=== PATIENT | male | born 1995 | race Caucasian/White ===

== ENCOUNTER 2017-12-18 20:42 | Emergency (ER) | payer BC ==
--- OUTSIDE RECORDS SUMMARY | 2017-12-18 21:18 | XMS REPORT ---
:1995 External Reference #:[id number] Author Organization [facility] Address [address] [place] [address] Phone [phone] Care Team Providers Name Role Phone HCP/LW on file Primary Care Physician Unavailable Payers Type Date Identification Numbers Payment Provider Subscriber Commercial Effective: Policy Number: VYW Bernard Blanco 2017 [id number] Ind/Ppo/Hmo/Pos PayID: [id number] [address] [address] [place] [address] Problems Description No Information Social History Type Date Description Comments Education Highest Level Completed College Marital Status Single Work Status Currently Working Currently Active Patient is currently sexually active Contraceptive Methods Current methods include condoms 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 Sexual Hx text 1-5 partners in lifetime Allergies, Adverse Reactions, Alerts Date Description Reaction Status Severity Comments 04/04/2016 Neosporin active Medications Medication Date Status Form Strength Qnty SIG Indications Ordering Provider Multivitamin 04/03/2 Active Tablets 1 by Unknown Adult 016 mouth every day Vitamin D Active 2 po Unknown 016 daily Magnesium Active one po Unknown 016 daily Fish Oil Active 2 caps Unknown 016 po daily Calcium Active 2 tbs po Unknown 016 daily Prednisone Hx Tablets 20mg 10tabs 2 tab by L23.7 Hektor, 017 - mouth LOKI Ervin daily x5 017 days Immunizations CPT Code Status Date Vaccine Lot # [id number] Given 10/30/2017 Adacel or Boostrix, TDaP [id number] Given 10/30/2017 Influenza Virus Vaccine, Quadrivalent, Split, [id number] Preservative Free [id number] Given 04/04/2016 Hep A, Adult [id number] Vital Signs Date Vital Result Comment 10/30/2017 BP Systolic 105 mmHg BP Diastolic 70 mmHg Height 69.5 inches 5'9.50" Weight 204.00 lb BMI (Body Mass Index) 29.7 kg/m2 05/31/2017 BP Systolic 110 mmHg BP Diastolic 80 mmHg Height 69.75 inches 5'9.75" Weight 201.00 lb BMI (Body Mass Index) 29.0 kg/m2 04/04/2016 BP Systolic 115 mmHg BP Diastolic 64 mmHg Height 69.5 inches 5'9.50" Weight 198.00 lb BMI (Body Mass Index) 28.8 kg/m2 Results Test Date Test Result H/L Range Note CBC Auto Diff 10/30/2017 White Blood Count 9.2 10^3/uL 3.5-10.8 1 Red Blood Count 5.19 10^6/uL 4.0-5.4 1 Hemoglobin 15.4 g/dL 14.0-18.0 1 Hematocrit 45 % 42-52 1 Mean Corpuscular Volume 87 fL 80-94 1 Mean Corpuscular Hemoglobin 30 pg 27-31 1 Mean Corpuscular HGB Conc 34 g/dL 31-36 1 Red Cell Distribution Width 13 % 10.5-15 1 Platelet Count 158 10^3/uL 150-450 1 Mean Platelet Volume 10 um3 7.4-10.4 1 Abs Neutrophils 6.9 10^3/uL 1.5-7.7 1 Abs Lymphocytes 1.3 10^3/uL 1.0-4.8 1 Abs Monocytes 0.9 10^3/uL High 0-0.8 1 Abs Eosinophils 0.1 10^3/uL 0-0.6 1 Abs Basophils 0 10^3/uL 0-0.2 1 Abs Nucleated RBC 0.01 10^3/uL 1 Granulocyte % 74.8 % 38-83 1 Lymphocyte % 14.3 % Low 25-47 1 Monocyte % 9.6 % High 1-9 1 Eosinophil % 0.9 % 0-6 1 Basophil % 0.4 % 0-2 1 Nucleated Red Blood Cells % 0.1 1 Comp Metabolic Panel 10/30/2017 Sodium 136 mmol/L 133-145 1 Potassium 4.6 mmol/L 3.5-5.0 1 Chloride 100 mmol/L Low 101-111 1 Co2 Carbon Dioxide 32 mmol/L 22-32 1 Anion Gap 4 mmol/L 2-11 1 Glucose 97 mg/dL 70-100 1 Blood Urea Nitrogen 16 mg/dL 6-24 1 Creatinine 1.08 mg/dL 0.67-1.17 1 BUN/Creatinine Ratio 14.8 8-20 1 Calcium 10.0 mg/dL 8.6-10.3 1 Total Protein 7.3 g/dL 6.4-8.9 1 Albumin 4.7 g/dL 3.2-5.2 1 Globulin 2.6 g/dL 2-4 1 Albumin/Globulin Ratio 1.8 1-3 1 Total Bilirubin 0.60 mg/dL 0.2-1.0 1 Alkaline Phosphatase 69 U/L 34-104 1 Alt 17 U/L 7-52 1 Ast 18 U/L 13-39 1 Egfr Non- 85.5 >60 1 Egfr 110.0 >60 1, 2 Lipid Profile (Trig/Chol/HDL) 10/30/2017 Triglycerides 172 mg/dL 1, 3 Cholesterol 216 mg/dL 1, 4 HDL Cholesterol 43.1 mg/dL 1, 5 LDL Cholesterol 139 mg/dL 1, 6 Laboratory test finding 10/30/2017 TSH (Thyroid Stim 1.69 mcIU/mL 0.34- 5.60 1, 7 Horm) Vitamin D Total 25(Oh) 16.9 ng/mL Low 20-50 1, 8 HIV 1/2 AB Evaluation 10/30/2017 HIV 1 2 Antibody Nonreactive Nonreactive 1, 9 1 FASTING 12 HOURS 2 Because ethnic data is not always readily available, this report includes an eGFR for both -Americans and non- Americans. The National Kidney Disease Education Program (NKDEP) does not endorse the use of the MDRD equation for patients that are not between the ages of 18 and 70, are , have extremes of body size, muscle mass, or nutritional status, or are non- or non-. According to the National Kidney Foundation, irrespective of diagnosis, the stage of the disease is based on the level of kidney function: Stage Description GFR(mL/min/1.73 m(2)) 1 Kidney damage with normal or decreased GFR 90 2 Kidney damage with mild decrease in GFR 60-89 3 Moderate decrease in GFR 30-59 4 Severe decrease in GFR 15-29 5 Kidney failure <15 (or dialysis) 3 Desirable: <150 Borderline High: 150-199 High: 200-499 Very High: >500 4 Desirable: <200 Borderline High: 200-239 High: >239 5 Low: <40 Desirable: 40-60 High: >60 6 Desirable: <100 Near Optimal: 100-129 Borderline High: 130-159 High: 160-189 Very High: >189 7 FASTING 12 HOURS 8 FASTING 12 HOURS 9 It is recognized that currently available assays for the detection of antibodies to HIV-1 and/or HIV-2 may not detect all infected individuals. HIV antibodies may be undetectable in some stages of the infection and in some clinical conditions. The performance of this assay has not been established for populations of infants or children. Assayed by Chemiluminescence Microparticle Immunoassay on the Siemens Advia Centaur CP. Values obtained with different methods or kits cannot be used interchangeably.The diagnostic specificity of the ADVIA Centaur 1/O/2 Enhanced assay in the low risk population was 99.90% (6052/6058) with a 95% confidence interval of 99.78 to 99.96%. Procedures Description No Information Encounters Type Date Location Provider CPT E/M Dx Office Visit 10/30/2017 10:30a Main Office [place] D.O. 99381 Z00.00 Z23 Z41.8 Office Visit 05/31/2017 11:00a [place] [address] L23.7 Office Visit 04/04/2016 12:55p Main Office [place] D.O. 97735 S76.211A Z23 Y93.B1 Plan of Care Future Appointment(s):11/05/2018 9:00 am - Oscar Hill D.O. at Main Itsrqm6910/30/2017 - Oscar [facility] D.O.Z00.00 Encntr for general adult medical exam w/o abnormal findingsFollow up:1-2 year [id number] Encounter for [id number] Encntr for oth proc for purpose oth [facility]
[2017-12-18 23:25] VITALS: BP 144/74
--- NOTE | 2017-12-19 00:12 | ED ---
Trino El Angela, scribed for Melisa Kwok MD on 12/18/17 at 2346 . HPI Chest Pain - HPI Summary HPI Summary: This pt is a 22 y/o male [facility]/o intermittent left sided chest pain for 1 year. Pt reports that today he had sudden onset of left sided chest pain at approximately 20:00 tonight. Pt describes this chest pain as sharp. He notes that at onset of his chest pain he was sitting down and eating dinner. Pt notes his chest pain has spontaneously resolved since then. He reports he lifts weights at the gym often. Pt has been to his PCP before for chest pain and was told it was indigestion. He denies anxiety. - History of Current Complaint Chief Complaint: EDChestPainROMI Time Seen by Provider: 12/18/17 23:37 Hx Obtained From: Patient Onset/Duration: Started Weeks Ago, Still Present Timing: Intermittent, Lasting Weeks Initial Severity: Moderate Current Severity: None Pain Intensity: 0 Pain Scale Used: 0-10 Numeric Chest Pain Location: Left Anterior Chest Pain Radiates: No Character: Sharp/Stabbing - sharp Aggravating Factor(s): Nothing Alleviating Factor(s): Spontaneous Resolution Associated Signs and Symptoms: Positive: Chest Pain - Allergy/Home Medications Allergies/Adverse Reactions: Allergies Allergy/AdvReac Type Severity Reaction Status Date / Time MS Bacitracin Allergy Hives Verified 12/08/12 10:25 [From Neosporin] MS Neomycin [From Neosporin] Allergy Hives Verified 12/08/12 10:25 MS Polymyxin B Allergy Hives Verified 12/08/12 10:25 [From Neosporin] PMH/Surg Hx/FS Hx/Imm Hx Endocrine/Hematology History: Denies: Hx Diabetes Cardiovascular History: Denies: Hx Hypertension Musculoskeletal History: Reports: Other Musculoskeletal History - fractured ankle 2008 Sensory History: Denies: Hx Contacts or Glasses, Hx Hearing Aid Opthamlomology History: Denies: Hx Contacts or Glasses - Surgical History Hx Anesthesia Reactions: No Infectious Disease History: No Infectious Disease History: Denies: Traveled Outside the [place] in Last 30 Days - Family History Known Family History: Positive: Cardiac Disease - Grandfather: [place] Family History: Grandmother: colon [place] - Social History Alcohol Use: Occasionally Substance Use Type: Reports: None Smoking Status (MU): Never Smoked Tobacco Review of Systems Negative: Fever, Chills Positive: Chest Pain Genitourinary: Negative Musculoskeletal: Negative Skin: Negative Neurological: Negative Negative: Anxious All Other Systems Reviewed And Are Negative: Yes Physical Exam - Summary Physical Exam Summary: VITAL SIGNS: Reviewed. GENERAL: Patient is a well-developed and nourished male who is lying comfortable in the stretcher. Patient is not in any acute respiratory distress. HEAD AND FACE: No signs of trauma. No ecchymosis, hematomas or skull depressions. No sinus tenderness. EYES: PERRLA, EOMI x 2, No injected conjunctiva, no nystagmus. EARS: Hearing grossly intact. Ear canals and tympanic membranes are within normal limits. MOUTH: Oropharynx within normal limits. NECK: Supple, trachea is midline, no adenopathy, no JVD, no carotid bruit, no c- spine tenderness, neck with full ROM. CHEST: Symmetric, no tenderness at palpation LUNGS: Clear to auscultation bilaterally. No wheezing or crackles. CVS: Regular rate and rhythm, S1 and S2 present, no murmurs or gallops appreciated. ABDOMEN: Soft, non-tender. No signs of distention. No rebound no guarding, and no masses palpated. Bowel sounds are normal. EXTREMITIES: FROM in all major joints, no edema, no cyanosis or clubbing. NEURO: Alert and oriented x 3. No acute neurological deficits. Speech is normal and follows commands. SKIN: Dry and warm Triage Information Reviewed: Yes Vital Signs On Initial Exam: Initial Vitals Temp Pulse Resp BP Pulse Ox 98.5 F 68 18 149/73 99 12/18/17 20:47 12/18/17 20:47 12/18/17 20:47 12/18/17 20:47 12/18/17 20:47 Vital Signs Reviewed: Yes Diagnostics - Vital Signs Vital Signs Temp Pulse Resp BP Pulse Ox 12/18/17 23:24 99 F 66 144/74 100 12/18/17 20:47 98.5 F 68 18 149/73 99 - Laboratory Lab Statement: Any lab studies that have been ordered have been reviewed, and results considered in the medical decision making process. - EKG 20:52 Cardiac Rate: NL EKG Rhythm: Sinus Rhythm - at 78 bpm EKG Interpretation: Normal axis. Normal interval. No ischemic changes Chest Pain Course/Dx - Course Assessment/Plan: This pt is a 22 y/o male [facility] [place]/o intermittent left sided chest pain for 1 year. Pt reports that today he had sudden onset of left sided chest pain at approximately 20:00 tonight. Pt describes this chest pain as sharp. He notes that at onset of his chest pain he was sitting down and eating dinner. Pt notes his chest pain has spontaneously resolved since then. He reports he lifts weights at the gym often. Pt has been to his PCP before for chest pain and was told it was indigestion. EKG shows normal sinus rhythm at 78 bpm. Pt denies any current chest pain. Pt will be discharged to home with follow up from his PCP. He is instructed to return to the ED for any worsening or new symptoms. - Diagnoses Provider Diagnoses: Atypical chest pain, Chest wall pain Discharge - Discharge Plan Condition: Stable Disposition: HOME Patient Education Materials: Chest Wall Pain (ED) Referrals: Naomi Thompson MD [Primary Care Provider] - 3 Days Additional Instructions: Recommend Ibuprofen or Tylenol for the pain. Please follow up with your primary care provider. RETURN TO EMERGENCY DEPARTMENT FOR ANY NEW OR WORSENING SYMPTOMS. The documentation as recorded by the Trino gamboa Angela accurately reflects the service I personally performed and the decisions made by me, Melisa Kwok MD.
== END 2017-12-19 00:08 | disposition home or self-care (01) ==
LOC: ED 20:42
DX: R07.89 Other chest pain (principal)
CPT/HCPCS: 93005; 99282